=== PATIENT | female | born 1970 | race Caucasian/White ===

== ENCOUNTER 2017-09-18 19:00 | Outpatient (CLI) | payer OTHER | END 2017-09-18 19:01 | disposition home or self-care (01) | LOC: SLEEPLAB 19:00 | PROVIDERS: ATTEND Internal Medicine | DX: G47.33 Obstructive sleep apnea (adult) (pediatric) (principal); G47.9 Sleep disorder, unspecified; R53.83 Other fatigue; F31.9 Bipolar disorder, unspecified; R51 Headache; Z68.28 Body mass index [BMI] 28.0-28.9, adult | CPT/HCPCS: 95806 ==

== ENCOUNTER 2018-12-12 11:23 | Emergency (ER) | payer OTHER ==
--- NOTE | 2018-12-12 12:55 | RAD ---
Portable frontal chest radiograph: 12/12/2018 COMPARISON: None available HISTORY: Lightheadedness, shortness of breath FINDINGS: Lungs are clear. Heart and mediastinal contours appear within normal limits. IMPRESSION: No acute findings.
== END 2018-12-12 13:35 | disposition home or self-care (01) ==
LOC: SCSER 11:23
DX: R42 Dizziness and giddiness (principal); F31.9 Bipolar disorder, unspecified
CPT/HCPCS: 36416; 71045; 93005